=== PATIENT | male | born 2000 | race Caucasian/White ===

== ENCOUNTER 2023-10-01 20:18 | Emergency (ER) | payer SELFPAY ==
[2023-10-01 20:24] VITALS: BP 176/94; PULSE 98; TEMP 36.4; O2SAT 98; BMI 48.1
--- NOTE | 2023-10-01 20:28 | XR_ITS ---
The [address] [address] Patient Name: ATUL GAMING MRN: [id number] date: 2000 Sex: M Assigned Patient Location: ED.MAIN Current Patient Location: ED.MAIN Accession/Order Number: [id number] Exam Date: 10/01/2023 20:32 Report Date: 10/01/2023 21:09 At the request of: FABRICIO NEGRON Procedure: XR shoulder LT min 2V EXAM: XR shoulder LT min 2V HISTORY: left shoulder pain COMPARISON: No prior shoulder x-ray, left shoulder included on chest x-ray 12/20/2018. TECHNIQUE: AP internal rotation, external rotation, Y view left shoulder. FINDINGS: No fracture or dislocation. No focal bone lesion. No periarticular calcifications. Normal glenohumeral AC joints. Normal mineralization. Visualized left clavicle, left ribs and left lung unremarkable XR/XR shoulder LT min 2V IMPRESSION: Negative left shoulder without fracture or dislocation. Electronically authenticated by: YOSSI BREWSTER Date: 10/01/2023 21:09
--- NOTE | 2023-10-01 20:30 | PC.NURSE ---
no redness, swelling or bruising to area of complaint.
--- NOTE | 2023-10-01 20:32 | ED_ITS ---
HPI HPI - Extremity Injury (Upper) General Chief Complaint: Extremity Injury, Upper Stated Complaint: Upper Pain Time Seen by Provider: 10/01/23 20:28 Source: patient Mode of arrival: walk-in History of Present Illness HPI narrative: Patient is a 22-year-old male who presents to the emergency department for persistent pain in the left shoulder. He reports pain over the left clavicle and glenohumeral joint radiating into the humerus. No numbness or tingling. He states he had a football injury 2 years ago where he landed on his left shoulder. He never had the area evaluated. He presents to the ER today because he states it is the final straw . No numbness or tingling into the hand. He is right-hand dominant. He reports significant pain with abduction of the left shoulder. Related Data Previous Rx's ?Medication ?Instructions ?Recorded ketorolac 10 mg tablet 10 mg PO TID PRN pain #10 tabs 10/01/23 methocarbamol 750 mg tablet 750 mg PO TID PRN pain #20 tabs 10/01/23 Allergies Allergy/AdvReac Type Severity Reaction Status Date / Time Penicillins Allergy Severe Verified 10/01/23 20:27 Opioid HPI Opioid Management Most Recent Pain and Opioid Data: Last Pain Scale 8 10/01/23 20:44 Review of Systems ROS Constitutional Denies: fever or chills Ears, nose, mouth, and throat Denies: throat pain, neck pain or nasal congestion Respiratory Denies: cough Gastrointestinal Denies: nausea or vomiting Musculoskeletal Reports: extremity pain, joint pain and limited range of motion; Denies: back pain or neck pain Integumentary/Breast Denies: rash Neurological Denies: headache Endocrine Denies: excessive urination Hematologic/Lymphatic Denies: easy bruising or easy bleeding Exam Narrative Exam Narrative: Gen.: Awake, alert, in no distress Head: Normocephalic, atraumatic ENT: Moist mucous membranes Respiratory: No respiratory distress Extremities: Diffuse tenderness of the left glenohumeral joint and clavicle with no obvious deformity or sulcus sign. 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 2+ radial pulses bilaterally. Psych: Normal mood and affect Neuro: No focal neuro deficit Skin: Warm, dry, intact Constitutional Vital Signs, click to edit/add: Last Vital Signs Temp 97.6 F 10/01/23 20:24 Pulse 98 H 10/01/23 20:24 Resp 18 10/01/23 20:24 BP 176/94 H 10/01/23 20:24 Pulse Ox 98 10/01/23 20:24 O2 Del Method Room Air 10/01/23 20:24 Course Vital Signs Vital signs: Vital Signs Temperature 97.6 F 10/01/23 20:24 Pulse Rate 98 H 10/01/23 20:24 Respiratory Rate 18 10/01/23 20:24 Blood Pressure 176/94 H 10/01/23 20:24 Pulse Oximetry 98 10/01/23 20:24 Oxygen Delivery Method Room Air 10/01/23 20:24 Temperature 97.6 F 10/01/23 20:24 Pulse Rate 98 H 10/01/23 20:24 Respiratory Rate 18 10/01/23 20:24 Blood Pressure 176/94 H 10/01/23 20:24 Pulse Oximetry 98 10/01/23 20:24 Oxygen Delivery Method Room Air 10/01/23 20:24 MDM - Extremity Injury (Upper) MDM Narrative Medical decision making narrative: X-rays of the shoulder reviewed by the radiologist with no evidence of fracture or dislocation. Patient will be treated with NSAIDs and muscle relaxants for home. Follow-up with PCP and orthopedics. Patient is neurovascularly intact at discharge. Rest, ice, gentle stretching Medical Records Attestation: I reviewed the patient's medical records. Imaging Data XR shoulder: Attestation: I have reviewed the pertinent imaging results. Radiologist's impression: ITS Impressions Shoulder X-Ray 10/01/23 20:28 IMPRESSION: Negative left shoulder without fracture or dislocation. Electronically authenticated by: YOSSI BREWSTER Date: 10/01/2023 21:09 Discharge Plan Discharge Stand Alone Forms: Portal Instructions Chief Complaint: Extremity Injury, Upper Clinical Impression: Acute pain of left shoulder Patient Disposition: Home, Self-Care Time of Disposition Decision: 21:11 Condition: Good Prescriptions / Home Meds: New ketorolac 10 mg tablet 10 mg PO TID PRN (Reason: pain) Qty: 10 0RF methocarbamol 750 mg tablet 750 mg PO TID PRN (Reason: pain) Qty: 20 0RF Print Language: Syrian Instructions: Shoulder Pain (ED) Referrals: Physician,Non-Staff, [Primary Care Provider] - 1 week Dwayne Haque MD [Physician] - 1 week Discharge Date/Time: 10/01/23 21:24
[2023-10-01] MEDS: METHOCARBAMOL 500 MG TABLET 1000 MG PO (20:43)
[2023-10-01] MEDS: KETOROLAC TROMETHAMINE 10 MG TABLET PO (20:43)
== END 2023-10-01 21:24 | disposition home or self-care (01) ==
PROVIDERS: Emergency Provider Emergency Medicine
DX: M25.512 Pain in left shoulder (principal)
CPT/HCPCS: 73030; 99284

== ENCOUNTER 2024-10-20 18:53 | Emergency (ER) | payer SELFPAY ==
[2024-10-20 19:22] VITALS: BP 129/82; PULSE 121; TEMP 37.1; O2SAT 97; BMI 48.8
--- NOTE | 2024-10-20 19:44 | ED.NAVMDI1 ---
HPI - Nausea/Vomiting/Diarrhea General Chief complaint: Nausea/Vomiting/Diarrhea Stated complaint: ABDOMINAL PAIN, VOMITING, FEVER Time Seen by Provider: 10/20/24 19:40 Source: patient and friend Mode of arrival: walk-in Limitations: no limitations History of Present Illness HPI Narrative: presents with multiple complaint. Developed left sided migraine early AM. Also developed recurrent vomiting and diarrhea. small streak of blood in the emesis once. No blood in the diarrhea. Vomiting has improved but diarrhea continues. Also has vertiginous symptoms if he moves his head. Room spins and he becomes nauseaed. No weakness of his extremties. States his back hurts. No fever or visual complaint. he will experience migraines 2 times per week Related Data Home Medications ?Medication ?Instructions ?Recorded ?Confirmed No Known Home Medications 10/20/24 10/20/24 Allergies Allergy/AdvReac Type Severity Reaction Status Date / Time Penicillins Allergy Severe Anaphylaxis Verified 10/20/24 19:21 Review of Systems ROS Status of ROS 10 or more systems reviewed and unremarkable except as noted in history and below PFSH [facility] Social History Little interest or pleasure in doing things: not at all Feeling down, depressed, or hopeless: not at all Exam Constitutional Vital Signs, click to edit/add: Last Vital Signs Temp 98.8 F 10/20/24 19:22 Pulse 102 H 10/20/24 23:12 Resp 18 10/20/24 23:12 BP 107/60 10/20/24 23:12 Pulse Ox 95 10/20/24 23:12 O2 Del Method Room Air 10/20/24 23:12 Common normals: no apparent distress, oriented x3, no limitations, alert and well nourished [facility] Common normals: normocephalic and head/scalp atraumatic Eye Common normals: PERRL, EOMs intact bilaterally and conjunctivae normal Respiratory Common normals: normal respiratory effort, no retractions, no use of accessory muscles and clear to auscultation bilaterally Cardio Common normals: regular rate, S1 normal heart sound and S2 normal heart sound GI Common normals: Normal to inspection, nondistended, normoactive bowel sounds present, soft to palpation and non-tender Extremity Common normals: normal to inspection and full ROM Neuro Common normals: oriented x3, CN's II-XII intact bilaterally, moves all extremities and no focal motor deficits Psych Appearance: grossly normal Course Vital Signs Vital signs: Vital Signs Temperature 98.8 F 10/20/24 19:22 Pulse Rate 121 H 10/20/24 19:22 Respiratory Rate 24 H 10/20/24 19:22 Blood Pressure 129/82 10/20/24 19:22 Pulse Oximetry 97 10/20/24 19:22 Oxygen Delivery Method Room Air 10/20/24 19:22 Temperature 98.8 F 10/20/24 19:22 Pulse Rate 102 H 10/20/24 23:12 Respiratory Rate 18 10/20/24 23:12 Blood Pressure 107/60 10/20/24 23:12 Pulse Oximetry 95 10/20/24 23:12 Oxygen Delivery Method Room Air 10/20/24 23:12 MDM - Nausea/Vomiting/Diarrhea MDM Narrative Medical decision making narrative: patient presents with migraine and gastroenteritis for past couple of days . Also dizziness with change in position. Medicated and hydrated in the department and also passed PO challenge with ice chips and popsicle. Dizziness resolved as well. Patient discharged home with reglan to use prn and advised to follow up with his family doctor Lab Data Labs: Lab Results 10/20/24 Range/Units 19:45 WBC 13.7 H (4.0-11.0) 10^3/uL RBC 5.19 (4.70-6.10) 10^6/uL Hgb 15.6 (14.0-18.0) g/dL Hct 45.6 (42.0-54.0) % MCV 87.9 (80.0-94.0) fL MCH 30.1 (25.9-34.0) pg MCHC 34.2 (29.9-35.2) g/dL RDW 13.1 (11.0-15.0) % Plt Count 274 (150-450) 10^3/uL MPV 10.2 (9.5-13.5) fL Neut % (Auto) 84.6 H (43.0-75.0) % Lymph % (Auto) 7.5 L (20.5-60.0) % Bartholomew % (Auto) 7.5 (1.7-12.0) % Eos % (Auto) 0.0 L (0.9-7.0) % Baso % (Auto) 0.2 (0.2-2.0) % Neut # (Auto) 11.6 H (1.4-6.5) 10^3/uL Lymph # (Auto) 1.0 L (1.2-3.8) 10^3/uL Bartholomew # (Auto) 1.0 H (0.3-0.8) 10^3/uL Eos # (Auto) 0.0 (0.0-0.7) 10^3/uL Baso # (Auto) 0.0 (0.0-0.1) 10^3/uL Abs Immat Gran (auto) 0.03 (0.00-0.03) 10^3/uL Imm/Tot Granulo (auto) 0.2 (0.0-0.5) % Sodium 137 (136-145) mmol/L Potassium 3.7 (3.5-5.1) mmol/L Chloride 98 (98-107) mmol/L Carbon Dioxide 29.6 (21.0-32.0) mmol/L Anion Gap 13.1 BUN 16.0 (7.0-18.0) mg/dL Creatinine 0.98 (0.70-1.30) mg/dL Est GFR ( Amer) >60 (>=60 mL/min/1.73m^2) Est GFR (Non-Af Amer) >60 (>=60 mL/min/1.73m^2) BUN/Creatinine Ratio 16.3 Glucose 98 (74-106) mg/dL Lactate 1.7 (0.4-2.0) mmol/L Calcium 9.0 (8.5-10.1) mg/dL Total Bilirubin 0.9 (0.2-1.0) mg/dL AST 26 (15-37) U/L ALT 50 (16-63) U/L Alkaline Phosphatase 78 (46-116) U/L Total Protein 7.7 (6.4-8.2) g/dL Albumin 3.7 (3.4-5.0) g/dL Globulin 4.0 g/dL Albumin/Globulin Ratio 0.9 Discharge Plan Discharge Chief Complaint: Nausea/Vomiting/Diarrhea Clinical Impression: Gastroenteritis, Migraine Patient Disposition: Home, Self-Care Condition: Good Mode of Transportation: Private Vehicle Prescriptions / Home Meds: No Action No Known Home Medications Print Language: Italian Instructions: Migraine Headache (ED), Gastroenteritis (ED) Additional Instructions: follow up with your family doctor in the next 2-3 days for recheck Referrals: Physician,Non-Staff, MD [Primary Care Provider] - 1 week Discharge Date/Time: 10/20/24 23:15
[2024-10-20 19:56] LABS: Basophils Percent Auto 0.2 % (0.2-2.0); Hematocrit 45.6 % (42.0-54.0); Hemoglobin 15.6 g/dL (14.0-18.0); Immature Granulocytes Abs Auto 0.03 10^3/uL (0.00-0.03); Immature Granulocytes Pct Auto 0.2 % (0.0-0.5); Lymphocytes Percent Auto 7.5 % (20.5-60.0); Mean Corpuscular HGB Conc 34.2 g/dL (29.9-35.2); Mean Corpuscular Hemoglobin 30.1 pg (25.9-34.0); Mean Corpuscular Volume 87.9 fL (80.0-94.0); Mean Platelet Volume 10.2 fL (9.5-13.5); Monocytes Percent Auto 7.5 % (1.7-12.0); Neutrophils Absolute Auto 11.6 10^3/uL (1.4-6.5); Neutrophils Percent Auto 84.6 % (43.0-75.0); Platelet Count 274 10^3/uL (150-450); Red Blood Count 5.19 10^6/uL (4.70-6.10); Red Cell Distribution Width 13.1 % (11.0-15.0); White Blood Count 13.7 10^3/uL (4.0-11.0)
[2024-10-20] MEDS: DIPHENHYDRAMINE HCL 50 MG/ML VIAL IVP (20:02)
[2024-10-20] MEDS: METOCLOPRAMIDE HCL 10 MG/2 ML VIAL IVP (20:02)
[2024-10-20] MEDS: 0.9 % SODIUM CHLORIDE 1,000 ML 999 ML IV ×2 (20:02→20:57)
[2024-10-20] MEDS: METHYLPREDNISOLONE SOD SUCC PF 125 MG/2 ML VIAL IVP (20:02)
[2024-10-20 20:13] LABS: Alanine Aminotransferase 50 U/L (16-63); Albumin Globulin Ratio 0.9; Albumin Level 3.7 g/dL (3.4-5.0); Alkaline Phosphatase 78 U/L (46-116); Anion Gap 13.1; Aspartate Amino Transferase 26 U/L (15-37); BUN Creatinine Ratio 16.3; Bilirubin Total 0.9 mg/dL (0.2-1.0); Carbon Dioxide 29.6 mmol/L (21.0-32.0); Chloride 98 mmol/L (98-107); Estimated GFR (African America >60 (>=60 mL/min/1.73m^2); Estimated GFR (Non-African Ame >60 (>=60 mL/min/1.73m^2); Glucose 98 mg/dL (74-106); Potassium 3.7 mmol/L (3.5-5.1); Sodium 137 mmol/L (136-145); Total Protein 7.7 g/dL (6.4-8.2)
[2024-10-20 20:16] LABS: Lactate/Lactic Acid 1.7 mmol/L (0.4-2.0)
[2024-10-20 20:59] VITALS: BP 132/71; PULSE 110; O2SAT 95
[2024-10-20] MEDS: METOCLOPRAMIDE HCL 10 MG TABLET PO (22:59)
[2024-10-20 23:12] VITALS: BP 107/60; PULSE 102; O2SAT 95
== END 2024-10-20 23:15 | disposition home or self-care (01) ==
PROVIDERS: Emergency Provider Internal Medicine
DX: K52.9 Noninfective gastroenteritis and colitis, unspecified (principal); G43.909 Migraine, unspecified, not intractable, without status migrainosus
CPT/HCPCS: 36415; 80053; 81001; 83605; 85025; 96361; 96374; 96375; 99285; J1200; J2765; J2919